=== PATIENT | female | born 1980 | race Caucasian/White ===

== ENCOUNTER → 2016-12-09 | Outpatient (CLI) | payer BC ==
[~2016-12-09] MED LIST: ACET-1256 PO
--- NOTE | 2016-12-09 15:42 | DIAGNOSTIC IMAGING REPORT ---
LEFT HEEL MIN 2 VIEWS CLINICAL HISTORY: Chronic left heel pain. COMPARISON: None FINDINGS: No calcaneal fracture or osseous lesion is identified. There is moderate posterior calcaneal spurring at the insertion of the calcaneus. IMPRESSION: 1. Moderate posterior calcaneal spurring at the insertion of the Achilles. 2. No left calcaneal fracture or osseous lesion. Electronically signed by: Daniel Serra M.D. 12/09/2016 3:40 PM Dictated Date/Time: 12/09/2016 3:40 PM
== END | disposition home or self-care (01) ==
LOC: C.RADPV 15:25
PROVIDERS: ATTEND Nurse Practitioner
DX: M79.672 Pain in left foot (principal); M77.32 Calcaneal spur, left foot

== ENCOUNTER → 2016-12-16 | Outpatient (CLI) | payer BC ==
[2016-12-16 12:40] LABS: BASO % 0.4 %; BASO ABS # 0.03 K/uL (0-0.2); COMPLETE YES; HEMATOCRIT 42.7 % (37-47); IG% 0.2 %; LYMPH % 29.4 %; LYMPH ABS # 2.39 K/uL (1.2-3.4); MEAN CELL VOLUME 87.7 fL (80-100); MEAN PLATELET VOLUME 10.9 fL (7.4-10.4); MONO % 4.6 %; NEUT % 62.4 %; PLATELET COUNT 305 K/uL (130-400); RED BLOOD COUNT 4.87 M/uL (4.2-5.4); WHITE BLOOD COUNT 8.13 K/uL (4.8-10.8)
[2016-12-16 13:14] LABS: BLOOD UREA NITROGEN 12 mg/dl (7-18); BUN/CREATININE RATIO 13.7 (10-20); CALCIUM 8.6 mg/dl (8.5-10.1); CARBON DIOXIDE 24 mmol/L (21-32); CHLORIDE 110 mmol/L (98-107); CHOLESTEROL 151 mg/dl (0-200); CREATININE 0.89 mg/dl (0.60-1.20); GLUCOSE 92 mg/dl (70-99); POTASSIUM 4.6 mmol/L (3.5-5.1); SODIUM 140 mmol/L (136-145); TRIGLYCERIDES 107 mg/dl (0-150); VERY LOW DENSITY LIPOPROT CALC 21 mg/dl
[2016-12-16 13:25] LABS: ALB/GLOB RATIO 0.9 (0.9-2); ALKALINE PHOSPHATASE 58 U/L (45-117); ALT/SGPT 25 U/L (12-78); AST/SGOT 16 U/L (15-37); CHOLESTEROL/HDL RATIO 3.8; HDL CHOLESTEROL 40 mg/dl; LDL CHOLESTEROL CALCULATED 90 mg/dl
[2016-12-16 13:34] LABS: ESTIMATED AVERAGE GLUCOSE 105 mg/dl; HA1C FLAG Normal (Normal)
== END | disposition home or self-care (01) ==
LOC: C.LABPVFM 07:58
PROVIDERS: ATTEND Nurse Practitioner
DX: F50.2 Bulimia nervosa (principal)

== ENCOUNTER → 2016-12-29 | Outpatient (CLI) | payer BC | END | disposition home or self-care (01) | LOC: C.PATHSPEC 17:11 | DX: D21.22 Benign neoplasm of connective and other soft tissue of left lower limb, including hip (principal) ==

== ENCOUNTER → 2017-06-09 | Outpatient (CLI) | payer BC | END | disposition home or self-care (01) | LOC: C.LABSPEC 14:16 | PROVIDERS: ATTEND Physician Assistant | DX: Z01.419 Encounter for gynecological examination (general) (routine) without abnormal findings (principal) ==

== ENCOUNTER 2020-05-03 05:30 | Inpatient (IN) ==
--- NOTE | 2020-05-02 14:02 | History and Physical Report ---
DATE OF ADMISSION: 05/03/2020 BRIEF HISTORY: The patient is a 40-year-old G3, P2 currently at 39 weeks 2 days gestational age, TARAN of 05/07/2020. The patient presents today for preoperative visit for planned repeat section with bilateral tubal ligation. The patient doing well without any significant complaints today. COMPLICATIONS: 1. Advanced maternal age over 40. 2. History of x2 with scheduled repeat. 3. History of herpes simplex virus, on Valtrex. 4. History of fetus currently affected by muscular septal defect, will need post-delivery echo. 5. History of gastric bypass. PRIOR OBSTETRICAL HISTORY: The patient has history of 2 prior sections at term. PAST MEDICAL HISTORY: Significant for: 1. Gastroesophageal reflux disease. 2. HSV. 3. History of TIA. Thrombophilia evaluation was negative. The patient was seen by hematology who recommended no anticoagulation. PAST SURGICAL HISTORY: Significant for: 1. x2. 2. Tracey-en-Y gastric bypass. 3. Cholecystectomy. 4. [place] tooth extraction. SOCIAL HISTORY: The patient denies current tobacco, alcohol or illicit drug use. PHYSICAL EXAMINATION: VITAL SIGNS: Blood pressure today at 116/72. GENERAL: The patient is well appearing in no acute distress, alert and oriented x3. CARDIAC: Showed regular rate and rhythm. LUNGS: Showed no labored breathing. ABDOMEN: Soft, nontender, gravid. Estimated heart rate by NST which was reactive today. Fetus cephalic by Navid's. LOWER EXTREMITIES: Showed mild edema, otherwise unremarkable. ASSESSMENT AND PLAN: The patient is a 40-year-old G3, P2 who presents for preoperative visit for planned repeat section with bilateral tubal ligation. Consents were reviewed and signed in clinic today. The patient otherwise doing well and all questions answered to patient's satisfaction. We specifically discussed the risks of the procedure in detail and answered all questions to the patient's satisfaction. The patient is considered hemorrhage risk of moderate to high risk. We will type and cross for 1 unit. We will plan for cefazolin for infection prophylaxis. MTDD
[~2020-05-03 05:30] MED LIST changes: -ACET-1256 PO; +LACTATED RINGER'S 1,000 ML IV SCH
[2020-05-03] MEDS ORDERED: SODIUM CHLORIDE 0.9% 250 ML IV PRN (05:38)
[2020-05-03] MEDS ORDERED: LACTATED RINGER'S 1,000 ML IV SCH ×2 (05:45→11:20)
[2020-05-03 05:58] LABS: Basophils # (auto) 0.02 K/uL (0-0.2); Basophils % (auto) 0.2 %; Eosinophils # (auto) 0.07 K/uL (0-0.5); Eosinophils % (auto) 0.8 %; Hematocrit (blood only) 38.9 % (37-47); Hemoglobin 13.6 g/dL (12.0-16.0); Immature Granulocytes # (auto) 0.04 K/uL (0.00-0.02); Immature Granulocytes % (auto) 0.4 %; Lymphocytes # (auto) 2.17 K/uL (1.2-3.4); Lymphocytes % (auto) 23.6 %; Mean Corpuscular Hemoglobin 32.9 pg (25-34); Mean Platelet Volume 10.9 fL (7.4-10.4); Monocytes # (auto) 0.53 K/uL (0.11-0.59); Monocytes % (auto) 5.8 %; Neutrophils # (auto) 6.37 K/uL (1.4-6.5); Neutrophils % (auto) 69.2 %; Platelet Count 231 K/uL (130-400); RDW Coefficient of Variation 13.4 % (11.5-14.5); RDW Standard Deviation 46.1 fL (36.4-46.3); Red Blood Count 4.14 M/uL (4.2-5.4)
[2020-05-03] MEDS ORDERED: ceFAZolin 2,000 MG in SYRINGE 0 ML IV SCH (06:00)
[2020-05-03] MEDS ORDERED: CITRIC ACID/SODIUM CITRATE 15 ML UDC PO SCH (06:00)
[2020-05-03] MEDS ORDERED: fentaNYL citrate 100 MCG/2 ML VIAL ONE (07:24)
[2020-05-03] MEDS ORDERED: MoRPHine SULFATE PF 1 MG/ML 10 ML AMP/VIAL ONE (07:24)
[2020-05-03] MEDS ORDERED: OXYTOCIN 10 UNITS/ML VIAL ONE (07:24)
--- NOTE | 2020-05-03 07:31 | History & Physical Bridge Note ---
Date of Service May 03, 2020 History & Physical Bridge Note I have examined the patient, reviewed the History & Physical and in the interval since the performance of the History & Physical I have noted the following changes of clinical significance: no changes noted
--- NOTE | 2020-05-03 07:37 | Anesthesiology Consultation ---
Date of Service May 03, 2020 Assessment & Plan (1) Encounter for pre-operative examination: Chart Review Chart Review: Acceptable Risk for Surgery and Patient NOT seen in Pre Admission Testing Consults Requested none ASA ASA2 Proposed Anesthesia Anesthesia Type: Spinal (intrathecal narcotics) Risk / Benefits Reviewed With: PT / POA / Parent / Guardian, Accepts Plan and Informed Consent Obtained History Surgery Operation Date: 05/03/20 07:30 Proposed Procedures p Section, - Jose Miguel Whipple MD s Bilateral Tubal Ligation - Jose Miguel Whipple MD Height/Weight Height: 5 ft 5 in Weight: 83.915 kg Allergies Allergy/AdvReac Type Severity Reaction Status Date / Time NSAIDS (Non-Steroidal AdvReac Intermediate due to hx Verified 05/02/20 09:00 Anti-Inflamma gastric bypass Medications Home Medications Medication Instructions Recorded Confirmed Last Taken breast pump #1 ea 12/19/19 05/02/20 Unknown cyanocobalamin (vitamin B-12) 1,000 mcg PO PM 02/20/20 05/02/20 Unknown 1,000 mcg capsule ferrous sulfate 325 mg (65 mg 325 mg PO BID 02/20/20 05/02/20 Unknown iron) tablet pediatric multivitamin no.76 1 tab PO BID 02/20/20 05/02/20 Unknown ascorbic acid (vitamin C) [Vitamin 500 mg PO BID 04/30/20 05/02/20 Unknown C] calcium carbonate-vitamin D3 1 tab PO BID 04/30/20 05/02/20 Unknown [Calcium 500 + D (D3)] valacyclovir 500 mg PO BID 04/30/20 05/02/20 Unknown NPO Date Last Intake of Fluids: 05/02/20 Time Last Intake of Fluids: 21:00 Date Last Intake of Solids: 05/02/20 Time Last Intake of Solids: 21:00 Past Medical History Medical History Advanced maternal age (AMA) in Cholelithiasis GERD (gastroesophageal reflux disease) hx Herpes simplex History of anesthesia reaction 1st C section, extreme itching, 2nd C section, vomiting Hx of transient ischemic attack (TIA) ? possilbe> 5 yrs ago> workup completed, no further follow up needed Hx of varicella Hyperemesis gravidarum Migraine variant Supervision of normal intrauterine in multigravida Exercise / Class Metabolic Activity II 4-5 Yardwork/Stairs/Walk up hill Past Surgical History Surgical History H/O section x2 History of esophagogastroduodenoscopy (EGD) History of Tracey-en-Y gastric bypass S/P cholecystectomy 2014 [place] teeth extracted Past Anesthesia History No Hx of Anesthesia Complications and No Family Hx of Anesthesia Complications History of PONV No Hx of PONV and No Hx of Motion Sickness Social History Smoking Status: Never smoker Do You Dip or Chew Tobacco: No Hx Alcohol Use: No Hx Substance Use: No substance use type: does not use Physical Exam Vital Signs Last Vital Signs Temp 36.7 C 05/03/20 05:38 Pulse 74 05/03/20 05:46 Resp 18 05/03/20 05:38 BP 107/67 05/03/20 05:46 Pulse Ox 96 05/03/20 03:00 ENMT Mouth: no dentition abnormality Thyromental Distance: > or= 3.5 Finger Breadths Mallampati Class: II Neck normal visual inspection Respiratory normal respiratory effort Auscultation: lungs clear to auscultation bilaterally Cardiovascular Rate/Rhythm: regular rate and regular rhythm Psychiatric Orientation: alert Testing Laboratory Results 05/03/20 05:46 Blood Type B Positive 05/03/20 05:46 Antibody Screen NEGATIVE 05/03/20 05:46
[2020-05-03] MEDS ORDERED: KETOROLAC 30 MG/ML VIAL ONE (08:49)
[2020-05-03] MEDS ORDERED: ONDANSETRON INJ 2 MG/ML 2 ML VIAL ONE (08:49)
--- NOTE | 2020-05-03 08:52 | Post Operative Brief Note ---
PG Immediate Post Op with CF Date of Surgery May 03, 2020 Pre & Post Diagnosis Operation Date: 05/03/20 07:30 Pre-Op Diagnosis: repeat section Post-Op Diagnosis: repeat section I identified the patient and participated in the time-out.: Yes Procedure Operation Date: 05/03/20 07:30 <No data on this case meets the specified criteria> Surgeon Jose Miguel Whipple MD National Account Director Dr. Guerrero Estimated Blood Loss 500 Findings Consistent with Post-Op Diagnosis
[2020-05-03] MEDS ORDERED: diphenhydrAMINE 50 MG/ML VIAL IV PRN (09:08)
[2020-05-03] MEDS ORDERED: MoRPHine SULFATE PF 1 MG/ML 10 ML AMP/VIAL INT SPINAL ONE (09:08)
[2020-05-03] MEDS ORDERED: MEPERIDINE HCL 25 MG/ML CARP/VIAL IV PRN (09:08)
[2020-05-03] MEDS ORDERED: NALOXONE HCL 0.08 MG in SYRINGE 1.8 ML IV PRN (09:08)
[2020-05-03] MEDS ORDERED: PROMETHAZINE HCL 6.25 MG in SODIUM CHLORIDE 0.9% 50 ML IV PRN (09:08)
[2020-05-03] MEDS ORDERED: NALOXONE HCL 1 MG in SODIUM CHLORIDE 0.9% 1000ML 1,000 ML IV PRN (09:08)
[2020-05-03] MEDS ORDERED: NALOXONE HCL 0.4 MG/1 ML VIAL/CARP IV PRN (09:08)
[2020-05-03] MEDS ORDERED: ePHEDrine sulfate 50 MG/ML AMP IV PRN (09:08)
[2020-05-03] MEDS ORDERED: KETOROLAC 30 MG/ML VIAL IV PRN (09:08)
[2020-05-03] MEDS ORDERED: LACTATED RINGER'S 500 ML IV PRN (09:08)
[2020-05-03] MEDS ORDERED: SODIUM CHLORIDE 0.9% 1000ML 1,000 ML IV SCH (09:15)
[2020-05-03] MEDS ORDERED: NO NARCOTICS OR SEDATIVES SCH (09:15)
[2020-05-03] MEDS ORDERED: MoRPHine SULFATE 4 MG/ML 1 ML CARP\\VIAL IV PRN (09:24)
[2020-05-03] MEDS ORDERED: HYDROmorphone INJ 1 MG/ML SYRINGE IV PRN (09:25)
--- NOTE | 2020-05-03 09:59 | Anesthesiology Progress Note ---
Date of Service May 03, 2020 Anesthesia Post Procedure Vital Signs Vital Signs: Temp Pulse Resp BP Pulse Ox 05/03/20 09:56 59 L 97 05/03/20 09:51 57 L 98 05/03/20 09:49 53 L 107/63 05/03/20 09:46 60 97 05/03/20 09:41 54 L 98 05/03/20 09:40 55 L 105/61 05/03/20 09:36 57 L 98 05/03/20 09:31 57 L 99 05/03/20 09:29 59 L 107/63 05/03/20 09:26 64 98 05/03/20 09:21 63 100 05/03/20 09:20 62 104/61 05/03/20 09:16 61 98 05/03/20 09:11 61 100 05/03/20 09:10 67 99/54 L 05/03/20 09:06 65 100 05/03/20 09:01 75 98 05/03/20 09:00 74 105/55 L 05/03/20 05:46 74 107/67 05/03/20 05:38 36.7 C 74 18 107/67 Transfer of Care Handoff Completed per policy Notes Mental Status: alert / awake / arousable Patient Amnestic to Procedure: Yes Nausea / Vomiting: adequately controlled Pain: adequately controlled Airway Patency, RR, SpO2: stable & adequate BP & HR: stable & adequate Hydration State: stable & adequate Neuraxial Anesthesia: was administered and sensory block is resolving Anesthetic Complications: no major complications apparent
[2020-05-03] MEDS ORDERED: ONDANSETRON INJ 2 MG/ML 2 ML VIAL IV PRN (11:20)
[2020-05-03] MEDS ORDERED: MAGNESIUM HYDROXIDE SUSP 30 ML UDC PO PRN (11:20)
[2020-05-03] MEDS ORDERED: SENNA 8.6 MG TAB PO PRN (11:20)
[2020-05-03] MEDS ORDERED: PROMETHAZINE HCL 25 MG in SODIUM CHLORIDE 0.9% 50 ML IV PRN (11:20)
[2020-05-03] MEDS ORDERED: HYDROCORTISONE ACETATE 25 MG SUPP PR PRN (11:20)
[2020-05-03] MEDS ORDERED: diphenhydrAMINE Capsule 25 MG CAP PO PRN (11:20)
[2020-05-03] MEDS ORDERED: DIPHTHERIA/TETANUS/PERTUSSIS 0.5 ML SYR/VIAL IM ONE (11:20)
[2020-05-03] MEDS ORDERED: BENZOCAINE 20% AER SPR 82.5 GM CAN EXT PRN (11:20)
[2020-05-03] MEDS ORDERED: SUPERCREAM 0.870% 15 GM JAR EXT PRN (11:20)
[2020-05-03] MEDS: OXYTOCIN 20 UNITS in LACTATED RINGER'S 1,000 ML IV SCH ×2 (11:35→19:34)
[2020-05-03] MEDS: SIMETHICONE 80 MG CHEW PO SCH ×3 (12:00→20:53)
[2020-05-03] MEDS: ONDANSETRON INJ 2 MG/ML 2 ML VIAL IV PRN ×2 (12:00→16:44)
--- NOTE | 2020-05-03 13:41 | Operative Report (OR) ---
DATE OF OPERATION: 05/03/2020 PROCEDURE: Repeat low transverse section with bilateral tubal ligation. SURGEON: Jose Miguel Whipple MD. CLARIFIER: Monique Guerrero MD. PREOPERATIVE DIAGNOSES: 1. Single intrauterine at 39+ weeks gestational age. 2. History of section x2, desiring repeat. 3. Desired permanent sterilization. 4. Advanced maternal age. 5. History of gastric bypass. 6. Possible small cardiac septal defect. POSTOPERATIVE DIAGNOSES: 1. Single intrauterine at 39+ weeks gestational age. 2. History of section x2, desiring repeat. 3. Desired permanent sterilization. 4. Advanced maternal age. 5. History of gastric bypass. 6. Possible small cardiac septal defect. 7. Status post procedure. ESTIMATED BLOOD LOSS: 500 mL. DRAINS: Scott catheter. FLUIDS: Continuous lactated Ringer. URINE OUTPUT: Per Scott catheter. COMPLICATIONS: None. FINDINGS: Viable female with weight and Apgars per record. DESCRIPTION OF PROCEDURE: The patient was taken to the operating room after consents were ensured. Upon presentation, she was properly identified. Spinal anesthesia was obtained without difficulty. The patient was then prepped and draped in normal sterile fashion. Preprocedural timeout was performed, after which the appropriate surgical levels were evaluated and noted to be adequate. A Pfannenstiel incision was then made with a knife at the location of her prior incision. The subcutaneous layers were dissected with Bovie. The fascial layers were then initially dissected in the midline with a knife. This was dissected in each direction with pickdavid and June scissors. The superior aspect of the fascia was then grasped with Kochers x2, elevated off the underlying rectus muscles using blunt dissection. The inferior aspect of the fascia was grasped with Kochers x2 and elevated off the underlying rectus muscles using blunt dissection. The midline of the abdomen was then entered bluntly and placed on stretch to provide adequate room for delivery. A bladder blade was then inserted and bladder flap was created in traditional fashion. The head of the was noted to be in cephalic position with midline uterus. A low transverse uterine incision was then made with a knife. The uterus was then entered bluntly. Once a thin layer was noted, the membranes were ruptured with an Allis clamp. The head of the was then delivered through the hysterotomy without difficulty and was noted to be vigorous on the surgical field. The cord was then doubly clamped and cut. was taken to the awaiting nursery staff. Cord blood was then obtained. Attention was then turned to deliver the placenta, which was delivered intact, 3-vessel cord, gentle cord traction. The uterus was then exteriorized and several passes were made to remove any remaining membranes with a wet lap. The endometrium was then thoroughly inspected to assure that there was no remaining membranes. The hysterotomy was then reapproximated with 0 Vicryl continuous running lock stitch in a single layer. There was noted to be excellent hemostasis. A [place] tubal ligation was then performed, first with the left tube followed by the right tube. Both tubal pedicles were noted to be hemostatic and tubal portions were sent to pathology for evaluation. The hysterotomy was then reinspected and noted to be hemostatic. Posterior cul-de-sac was cleaned of clots and debris. The uterus was then returned to the maternal abdomen and the right and left pericolic gutters were cleaned of clots and debris. Hysterotomy was then reinspected and was noted to be hemostatic. Space of Retzius, subcutaneous and muscle layers were all inspected and noted to be hemostatic. The fascia was then reapproximated with 0 Vicryl continuous stitch starting at the lateral apices and continuing to the midline from each side. The subcutaneous layers were closed in 2 layers with 2-0 plain with continuous running stitch. The dermal layer was then reapproximated with a 4-0 on a Hugo needle with subcuticular stitch. Dermabond was then placed on top. Needle, sponge and instrument counts were correct at the completion of the case. I attest to the content of the Intraoperative Record and any orders documented therein. Any exception s are noted below.
[2020-05-03] MEDS: ASCORBIC ACID 500 MG TAB PO SCH ×2 (14:06→20:53)
[2020-05-03] MEDS: CALCIUM 600MG + VIT D 400 IU TAB PO SCH ×2 (14:06→20:53)
--- NOTE | 2020-05-03 15:59 | Obstetrical Progress Note ---
Date of Service May 03, 2020 Assessment & Plan Admission and Anticipated Discharge Date Admission Date: May 03, 2020 Discussed throat pain with anesthesia, recommended ice, chloraseptic spray, and salt water gargles. Pt denies difficulty with breathing and satting well, will continue these measures. Discussed ENT consult if still no improvement, though discussed will take some time. Pt and amenable Subjective Pt's pain has been difficult to control, abdominally and with throat. Had difficult ET placement during CS overnight, has had sore throat during the day. Notes pain was bad enough that she needed pain meds for throat pain earlier. No CP, SOB, difficulty breathing otherwise. Ice and jello do help, chloraseptic spray helps a little as well but is still very painful. Abd pain does improve with pain meds Physical Exam Constitutional: WD/WN, vitals as above no acute distress ENMT: Mild swelling noted on lower R neck, tender to palpation. No erythema, nodularity, palpable masses Respiratory: normal respiratory effort; no respiratory distress and no labored breathing Gastrointestinal (Abdomen): soft, appropriately tender, ND Results & Data ([facility]) Vital Signs (Past 12 Hours) Vital Signs Temp Pulse Pulse Resp BP BP Pulse Ox 05/03/20 14:05 59 L 16 113/73 99 05/03/20 13:05 73 16 122/85 99 05/03/20 12:05 97.5 F L 64 16 117/75 99 05/03/20 11:21 61 96 05/03/20 11:16 58 L 96 05/03/20 11:11 63 97 05/03/20 11:09 58 L 118/74 05/03/20 11:06 57 L 97 05/03/20 11:03 97.5 F L 20 05/03/20 11:01 62 97 05/03/20 10:59 54 L 115/68 05/03/20 10:56 55 L 98 05/03/20 10:51 61 99 05/03/20 10:49 56 L 111/68 05/03/20 10:46 58 L 98 05/03/20 10:41 54 L 96 05/03/20 10:39 53 L 107/67 05/03/20 10:36 51 L 97 05/03/20 10:31 52 L 96 05/03/20 10:30 20 05/03/20 10:29 48 L 114/70 05/03/20 10:26 55 L 96 05/03/20 10:21 53 L 96 05/03/20 10:20 51 L 114/63 05/03/20 10:16 53 L 96 05/03/20 10:11 54 L 98 05/03/20 10:10 54 L 94/57 L 05/03/20 10:06 53 L 97 05/03/20 10:01 57 L 98 05/03/20 10:00 20 05/03/20 09:56 59 L 97 05/03/20 09:51 57 L 98 05/03/20 09:50 20 05/03/20 09:49 53 L 107/63 05/03/20 09:46 60 97 05/03/20 09:41 54 L 98 05/03/20 09:40 55 L 20 105/61 05/03/20 09:36 57 L 98 05/03/20 09:31 57 L 99 05/03/20 09:30 20 05/03/20 09:29 59 L 107/63 05/03/20 09:26 64 98 05/03/20 09:21 63 100 05/03/20 09:20 62 20 104/61 05/03/20 09:16 61 98 05/03/20 09:11 61 100 05/03/20 09:10 67 20 99/54 L 05/03/20 09:06 65 100 05/03/20 09:01 75 98 05/03/20 09:00 97.5 F L 74 20 105/55 L 05/03/20 05:46 74 107/67 05/03/20 05:38 98.1 F 74 18 107/67 PG Care Time/CCT Total # of Minutes Spent Total Time Spent with Patient: Total time spent is greater than 50% in project coordinator rdination of care (as documented) at patient's floor/unit and/or counseling patient: Coding Level of Care Code None
[2020-05-03] MEDS: MULTIVITAMIN CHEWABLE TAB PO SCH (20:52)
[2020-05-03] MEDS: DOCUSATE SODIUM 100 MG CAP PO SCH (20:53)
[2020-05-03] MEDS: FERROUS SULFATE 325 MG TAB PO SCH (20:53)
[2020-05-03] MEDS: CYANOCOBALAMIN 500 MCG TABLET (VITAMIN B-12) PO SCH (20:53)
[2020-05-04] MEDS ORDERED: DC INTRASPINAL MORPHINE ONE (03:09)
[2020-05-04] MEDS ORDERED: diphenhydrAMINE 50 MG/ML VIAL IV PRN (03:10)
[2020-05-04] MEDS ORDERED: KETOROLAC 30 MG/ML VIAL IV PRN (03:10)
[2020-05-04] MEDS ORDERED: diphenhydrAMINE Capsule 25 MG CAP PO PRN (03:10)
--- NOTE | 2020-05-04 05:51 | Obstetrical Progress Note ---
Date of Service <Tutu Alves MD - Last Filed: 05/04/20 06:50> May 04, 2020 Assessment & Plan <Tutu Alves MD - Last Filed: 05/04/20 06:50> (1) S/P : Valentin is a 40 y/o female who is POD #1 following RLCTS plus BTL at 39-3/7 WGA - Feels well today. Eating well, voiding well, ambulating well. - Pain well controlled with ibuprofen and Percocet PRN - Routine PPD care -- OOB, ambulation, diet progression as tolerated throughout today - After discharge will have [address] Whipple Subjective <Tutu Alves MD - Last Filed: 05/04/20 06:50> Valentin is a 40 y/o female who is POD #1 following RLCTS plus BTL at 39-3/7 WGA. She reports feeling well overall this morning. Endorses minimal abdominal cramping with pain well managed on analgesics. Voiding without difficulty since Yee removal yesterday. Tolerating meals overnight and able to ambulate some. Endorses passing gas but not yet bowel movement. Has some persistent lochia with some improvement this morning. Breast feeding without difficulty. Review of Systems Denies fever, chills, sweats Denies shortness of breath, difficulty breathing, chest pain, palpitations, chest pressure. Denies breast pain. Denies dysuria. Denies headache or changes in vision. Physical Exam <Tutu Alves MD - Last Filed: 05/04/20 06:50> General: Alert, oriented. No acute distress. Cardiac: Regular rate and rhythm, no murmurs/rubs/gallops. Respiratory: Clear to auscultation bilaterally a/p, no wheezes/rales/rhonchi. No increased work of breathing. Symmetrical chest rise. No respiratory distress. Abdomen: Soft, nontender, nondistended. Bowel sounds present. Uterus: Uterine fundus firm, palpable 2 cm below umbilicus. Surgical scar clean and healing well. Lower Extremities: No lower extremity edema or swelling. No deep calf pain. Beto's negative bilaterally. Results & Data ([facility]) <Tutu Alves MD - Last Filed: 05/04/20 06:50> Vital Signs (Past 12 Hours) Vital Signs Temp Pulse Resp BP Pulse Ox 05/04/20 04:15 36.9 C 72 16 109/71 98 05/04/20 03:00 16 97 05/04/20 02:00 16 99 05/04/20 01:00 17 97 05/04/20 00:10 36.7 C 76 16 118/76 99 05/03/20 23:00 17 98 05/03/20 22:13 18 97 05/03/20 21:17 16 99 05/03/20 20:30 16 99 05/03/20 19:25 36.8 C 62 16 113/67 99 05/03/20 18:15 16 98 <Monique Guerrero MD - Last Filed: 05/04/20 07:39> Co-Signing Physician Notes Resident Physician Supervision Note: I interviewed and examined the patient. Discussed with Dr. Alves and agree with findings and plan as documented in the note. Any exceptions or clarifications are listed here: POD1 s/p rLTCS/BTL. Doing well, meeting all milestones except is DTV following yee removal this AM. AM CBC stable. Continue routine pp care Documented By: Monique Guerrero MD Resident Activity Tracking <Tutu Alves MD - Last Filed: 05/04/20 06:50> Resident Involvement: Resident Care Provided Care Provided: Adult Hospital Medicine and OB Delivery
[2020-05-04 05:54] LABS: Basophils # (auto) 0.02 K/uL (0-0.2); Basophils % (auto) 0.1 %; Eosinophils # (auto) 0.13 K/uL (0-0.5); Hematocrit (blood only) 34.6 % (37-47); Hemoglobin 12.1 g/dL (12.0-16.0); Immature Granulocytes # (auto) 0.04 K/uL (0.00-0.02); Immature Granulocytes % (auto) 0.3 %; Lymphocytes # (auto) 2.62 K/uL (1.2-3.4); Lymphocytes % (auto) 19.2 %; Mean Corpuscular Volume 94.3 fL (80-100); Mean Platelet Volume 10.4 fL (7.4-10.4); Monocytes # (auto) 0.64 K/uL (0.11-0.59); Monocytes % (auto) 4.7 %; Neutrophils # (auto) 10.19 K/uL (1.4-6.5); Neutrophils % (auto) 74.7 %; Platelet Count 196 K/uL (130-400); RDW Coefficient of Variation 13.6 % (11.5-14.5); Red Blood Count 3.67 M/uL (4.2-5.4); White Blood Count 13.64 K/uL (4.8-10.8)
[2020-05-04] MEDS ORDERED: FERROUS SULFATE 325 MG TAB PO SCH (08:00)
[2020-05-04] MEDS: OXYTOCIN 20 UNITS in LACTATED RINGER'S 1,000 ML IV SCH ×2 (08:01→14:26)
[2020-05-04] MEDS: SIMETHICONE 80 MG CHEW PO SCH ×4 (08:12→19:57)
[2020-05-04] MEDS: PRENATAL VITAMIN 1 TAB PO SCH (08:12)
[2020-05-04] MEDS: DOCUSATE SODIUM 100 MG CAP PO SCH ×2 (08:12→19:56)
[2020-05-04] MEDS: FERROUS SULFATE 325 MG TAB PO SCH ×2 (08:14→17:11)
[2020-05-04] MEDS: MULTIVITAMIN CHEWABLE TAB PO SCH ×2 (14:26→19:58)
[2020-05-04] MEDS: CALCIUM 600MG + VIT D 400 IU TAB PO SCH ×2 (17:13→19:57)
[2020-05-04] MEDS: ASCORBIC ACID 500 MG TAB PO SCH ×2 (17:15→19:59)
[2020-05-04] MEDS: CYANOCOBALAMIN 500 MCG TABLET (VITAMIN B-12) PO SCH (19:59)
[2020-05-04] MEDS ORDERED: bisacodyL 5 MG TABEC PO SCH (20:00)
[2020-05-04] MEDS: oxyCODONE/ACETAMINOPHEN 5mg/325mg TAB PO PRN (23:33)
[2020-05-05] MEDS: oxyCODONE/ACETAMINOPHEN 5mg/325mg TAB PO PRN ×2 (04:00→10:06)
[2020-05-05] MEDS: PRENATAL VITAMIN 1 TAB PO SCH (08:10)
[2020-05-05] MEDS: FERROUS SULFATE 325 MG TAB PO SCH (08:10)
[2020-05-05] MEDS: DOCUSATE SODIUM 100 MG CAP PO SCH (08:10)
[2020-05-05] MEDS: SIMETHICONE 80 MG CHEW PO SCH (08:10)
[2020-05-05] MEDS: ASCORBIC ACID 500 MG TAB PO SCH (08:11)
[2020-05-05] MEDS: CALCIUM 600MG + VIT D 400 IU TAB PO SCH (08:11)
[2020-05-05] MEDS: MULTIVITAMIN CHEWABLE TAB PO SCH (08:12)
[2020-05-05] MEDS ORDERED: bisacodyL 10 MG SUPP PR PRN (08:37)
--- NOTE | 2020-05-05 09:50 | Obstetrical Progress Note ---
Date of Service May 05, 2020 Assessment & Plan (1) Encounter for pre-operative examination: 40yo day 2 s/p rLTCS w BTL. Doing well. Stable for discharge (2) S/P : Subjective Ambulation: ambulating normally Voiding: no voiding problems Passing Gas:: Yes Diet Tolerance:: regular diet Lochia:: Moderate Physical Exam Constitutional WD/WN, vitals as above Respiratory normal respiratory effort; no respiratory distress and no labored breathing Gastrointestinal (Abdomen) Inspection/Auscultation: abdomen normal to inspection; abdomen not distended Percussion/Palpation: abdomen soft; abdomen nontender, no guarding and abdomen not rigid Genitourinary OB Exam Abdomen: + fundal height Fundus: + firm and + relation to umbilicus (Below); not tender and not boggy Results & Data ([facility]) Vital Signs (Past 12 Hours) Vital Signs Temp Pulse Resp BP Pulse Ox 05/05/20 07:36 36.7 C 88 18 106/67 98 05/04/20 23:30 36.8 C 75 16 108/68 97
--- NOTE | 2020-05-07 11:08 | Discharge Summary (DS) ---
HOSPITAL COURSE: The patient was admitted for a repeat low transverse section with bilateral tubal ligation. The procedures were performed without complication. The patient remained in house until day 2 for recovery and recovered well without any issues. The patient was stable for discharge on day #2 and was discharged home in stable condition. Both written and verbal discharge instructions were provided.
== END 2020-05-05 10:50 | disposition home or self-care (01) | DRG 784 ==
LOC: 4S1 05:30 → EDSTATUS 07:30 → 4S2 13:05